=== PATIENT | female | born 1965 | race Caucasian/White ===

== ENCOUNTER 2020-10-24 09:00 | Outpatient (CLI) | payer BC | END 2020-10-24 09:01 | disposition home or self-care (01) | LOC: CSHMAMMO 09:00 | PROVIDERS: ATTEND Family Medicine | DX: N64.4 Mastodynia (principal) | CPT/HCPCS: 77066; G0279 ==

== ENCOUNTER 2021-12-28 07:41 | Outpatient (CLI) | payer BC ==
[2021-12-28] MEDS ORDERED: Iopamidol 370 76% 100 ML VIAL ONE (09:34)
== END 2021-12-28 07:42 | disposition home or self-care (01) ==
LOC: CSHCT 07:41
PROVIDERS: ATTEND Physician Assistant Medical
DX: R19.7 Diarrhea, unspecified (principal); K21.9 Gastro-esophageal reflux disease without esophagitis; R10.30 Lower abdominal pain, unspecified; N20.0 Calculus of kidney; D73.9 Disease of spleen, unspecified; K57.30 Diverticulosis of large intestine without perforation or abscess without bleeding; K63.89 Other specified diseases of intestine
CPT/HCPCS: 74177; Q9967

== ENCOUNTER 2021-12-28 09:01 | Outpatient (CLI) | payer BC | END 2021-12-28 09:02 | disposition home or self-care (01) | LOC: CSHMAMMO 09:01 | PROVIDERS: ATTEND Family Medicine | DX: Z12.31 Encounter for screening mammogram for malignant neoplasm of breast (principal) | CPT/HCPCS: 77063; 77067 ==

== ENCOUNTER 2022-09-27 14:03 | Outpatient (CLI) | payer BC | END 2022-09-27 14:04 | disposition home or self-care (01) | LOC: CSHRAD 14:03 | PROVIDERS: ATTEND Urology | DX: N20.0 Calculus of kidney (principal) | CPT/HCPCS: 74018 ==

== ENCOUNTER 2022-09-27 14:43 | Outpatient (CLI) | payer BC ==
[2022-09-27 14:58] LABS: Bilirubin Neg (Negative); Blood, Urine Negative (Negative); Clarity Clear (Clear); Glucose, Urine (Dipstick) Normal (Negative); Ketone, Urine Negative (Negative); Leukocyte Negative (Negative); Nitrite Negative (Negative); Protein, Urine (Dipstick) Negative (Neg-Trace); Urobilinogen Normal mg/dL (Less than 2)
[2022-09-27 15:20] LABS: Anion Gap 15 mmol/L (10-20); BUN (Urea Nitrogen) 16 mg/dL (9.8-20.1); Calc. Creatinine Clearance 0 mL/min (70-130); Calcium 9.5 mg/dL (7.8-10.44); Carbon Dioxide 26 mmol/L (22-29); Chloride 105 mmol/L (98-107); Estimated GFR 77; Glucose 96 mg/dL (70-105); Potassium 4.3 mmol/L (3.5-5.1); RBC/HPF None Seen HPF (0-3); Sodium 142 mmol/L (136-145); Squamous Epithelial 0-3 HPF (0-3); WBC/HPF 0-3 HPF (0-3)
[2022-09-27 15:21] LABS: Bacteria/HPF Rare-Few HPF (None Seen)
== END 2022-09-27 14:44 | disposition home or self-care (01) ==
LOC: CSHLAB 14:43
PROVIDERS: ATTEND Urology
DX: N20.0 Calculus of kidney (principal); N28.1 Cyst of kidney, acquired
CPT/HCPCS: 36415; 80048; 81001; 87086

== ENCOUNTER 2023-01-10 10:05 | Outpatient (CLI) | payer BC | END 2023-01-10 10:06 | disposition home or self-care (01) | LOC: CSHMAMMO 10:05 | PROVIDERS: ATTEND Family Medicine | DX: Z12.31 Encounter for screening mammogram for malignant neoplasm of breast (principal) | CPT/HCPCS: 77063; 77067 ==

== ENCOUNTER 2025-02-01 14:57 | Outpatient (CLI) | payer BC | END 2025-02-01 14:58 | disposition home or self-care (01) | LOC: CSHMAMMO 14:57 | PROVIDERS: ATTEND Family Medicine | DX: Z12.31 Encounter for screening mammogram for malignant neoplasm of breast (principal); Z80.3 Family history of malignant neoplasm of breast; Z85.820 Personal history of malignant melanoma of skin; N64.89 Other specified disorders of breast | CPT/HCPCS: 77063; 77067 ==